=== PATIENT | male | born 1970 | race Hispanic/Latino ===

== ENCOUNTER 2019-09-11 08:36 | Outpatient (CLI) | payer BC ==
--- NOTE | 2019-09-11 09:23 | RAD ---
2 view chest: [09/11/2019] Comparison:None available HISTORY: Pain FINDINGS: No pneumothorax or pleural fluid is seen. There is no focal consolidation or alveolar edema . Heart and mediastinal contours are unremarkable. Clips in right upper quadrant suggest prior cholecystectomy. Mild nonspecific increased interstitial density. IMPRESSION: No focal consolidation or alveolar edema.
== END 2019-09-11 08:37 | disposition home or self-care (01) ==
LOC: BICRAD 08:36
PROVIDERS: ATTEND Family Medicine
DX: R07.9 Chest pain, unspecified (principal)
CPT/HCPCS: 71046